=== PATIENT | female | born 1985 | race Caucasian/White ===

== ENCOUNTER 2021-09-20 16:39 | Emergency (ER) | payer OTHER ==
[2021-09-20 17:02] VITALS: BP 134/75; PULSE 99; TEMP 98.6; BMI 43.4
[2021-09-20 18:52] LABS: EOS % 9.1 % (0-4.5); HEMATOCRIT 38.3 % (32.4-45.2); HEMOGLOBIN 12.9 GM/dL (10.7-15.3); LYMPH % 21.2 % (8-40); MCH 29.8 pg (25.7-33.7); MCHC 33.6 g/dl (32.0-36.0); MEAN CELL VOLUME 88.7 fl (80-96); MEAN PLT VOLUME 7.5 fl (7.5-11.1); MONO % 5.8 % (3.8-10.2); NEUT % 62.9 % (42.8-82.8); PLATELET COUNT 279 10^3/uL (134-434); RBC 4.31 M/mm3 (3.60-5.2); RDW 13.4 % (11.6-15.6); WHITE BLOOD COUNT 13.8 K/mm3 (4.0-10.0)
[2021-09-20 19:14] LABS: ALBUMIN 3.4 g/dl (3.4-5.0); BLOOD UREA NITROGEN 14.6 mg/dL (7-18)
[2021-09-20 19:17] LABS: CREATININE 0.7 mg/dL (0.55-1.3)
[2021-09-20 19:19] LABS: BILIRUBIN,TOTAL 0.2 mg/dL (0.2-1); TOT PROT 7.3 g/dl (6.4-8.2)
[2021-09-20 20:02] LABS: EPI CELLS 9 /uL (0-25.1); HYALINE CASTS 1 /uL (0-3.1); PH,URINE 5.5 (5.0-8.0); URINE APPEARANCE CLEAR; URINE BACTERIA >9,000 /uL (0-1359); URINE BILIRUBIN NEGATIVE (NEGATIVE); URINE COLOR YELLOW; URINE GLUCOSE (UA) NEGATIVE (NEGATIVE); URINE KETONE NEGATIVE (NEGATIVE); URINE LEUK ESTERASE TRACE (NEGATIVE); URINE NITRITE POSITIVE (NEGATIVE); URINE PROTEIN 2+ (NEGATIVE); URINE RBC 747 /uL (0-23.9); URINE WBC 56 /uL (0-25.8)
== END 2021-09-20 20:38 | disposition home or self-care (01) ==
LOC: JER 16:39
DX: O26.851 Spotting complicating pregnancy, first trimester (principal); Z3A.01 Less than 8 weeks gestation of pregnancy
CPT/HCPCS: 36415; 80053; 81003; 84702; 85025; 86850; 86900; 86901; 87086; 87186; 99284-25

== ENCOUNTER 2021-10-08 13:53 | Inpatient (IN) | payer OTHER ==
[2021-10-08] MEDS ORDERED: VANCOMYCIN 1 GM in D5W (PRE-DOCKED) 1,000 MG/250 ML IVPB ONE (16:01)
[2021-10-08 17:43] LABS: CALCIUM 8.9 mg/dL (8.5-10.1)
[2021-10-08 17:44] LABS: BLOOD UREA NITROGEN 12.1 mg/dL (7-18)
[2021-10-08 17:47] LABS: CREATININE 0.6 mg/dL (0.55-1.3)
[2021-10-08 17:48] LABS: BILIRUBIN,TOTAL 0.4 mg/dL (0.2-1); TOT PROT 7.6 g/dl (6.4-8.2)
[2021-10-08] MEDS ORDERED: VANCOMYCIN 1 GRAM (PRE-DOCKED) 1,000 MG/250 ML BAG IVPB ONE (18:29)
[2021-10-08 18:57] LABS: BASO % 0.7 % (0-2.0); EOS % 3.8 % (0-4.5); HEMATOCRIT 38.2 % (32.4-45.2); HEMOGLOBIN 12.9 GM/dL (10.7-15.3); MCH 29.1 pg (25.7-33.7); MCHC 33.6 g/dl (32.0-36.0); MEAN CELL VOLUME 86.6 fl (80-96); MONO % 6.6 % (3.8-10.2); NEUT % 69.9 % (42.8-82.8); RBC 4.42 M/mm3 (3.60-5.2); RDW 13.2 % (11.6-15.6); WHITE BLOOD COUNT 19.5 K/mm3 (4.0-10.0)
[2021-10-08] MEDS ORDERED: SODIUM CHLORIDE 0.9% 500 ML INFUS.BAG IV ONE (19:15)
[2021-10-08 19:27] LABS: MEAN PLT VOLUME 8.2 fl (7.5-11.1); PLATELET COUNT 478 10^3/uL (134-434)
[2021-10-08] MEDS ORDERED: PIPERACILLIN/TAZOB 4.5 GM 4.5 GM in DEXTROSE 5%-WATER 100 ML IVPB ONE (20:10)
[2021-10-08] MEDS ORDERED: PIPERACILLIN/TAZOB 4.5 GM 4.5 GM/100 ML BAG IVPB ONE (21:06)
[2021-10-09] MEDS ORDERED: VANCOMYCIN 1 GM PREMIX - 1 GM/200 ML BAG IVPB SCH (02:30)
[2021-10-09] MEDS ORDERED: VANCOMYCIN 1 GRAM (PRE-DOCKED) 1 GM/250 ML BAG IVPB SCH (02:45)
[2021-10-09] MEDS: ACETAMINOPHEN 325 MG TABLET (FP) PO PRN ×2 (03:21→22:01)
[2021-10-09] MEDS ORDERED: PIPERACILLIN/TAZOB 3.375 GM 3.375 GM/50 ML BAG IVPB SCH (10:00)
[2021-10-09] MEDS ORDERED: PIPERACILLIN/TAZOB 3.375 GM 3.375 GM in DEXTROSE 5%-WATER - 50 ML IVPB SCH (10:00)
[2021-10-09] MEDS ORDERED: ENOXAPARIN NA (PORCINE) 40 MG/0.4 ML DISP.SYRIN SQ SCH (10:00)
[2021-10-09] MEDS ORDERED: PIPERACILLIN/TAZOB 3.375 GM 3.375 GM in DEXTROSE 5%-WATER - 3.375 GM/50 ML IVPB IVPB SCH (10:15)
[2021-10-09] MEDS ORDERED: PIPERACILLIN/TAZOBACTAM 3.375 GM VIAL IVPB ONE ×2 (10:19→17:21)
[2021-10-09] MEDS ORDERED: DEXTROSE 5%-WATER - 50 ML IVPB ONE ×2 (10:19→17:22)
[2021-10-09 11:45] LABS: BASO % 0.9 % (0-2.0); EOS % 7.6 % (0-4.5); HEMATOCRIT 31.7 % (32.4-45.2); HEMOGLOBIN 10.5 GM/dL (10.7-15.3); LYMPH % 22.2 % (8-40); MCH 28.8 pg (25.7-33.7); MCHC 33.3 g/dl (32.0-36.0); MEAN CELL VOLUME 86.7 fl (80-96); MEAN PLT VOLUME 7.7 fl (7.5-11.1); MONO % 5.9 % (3.8-10.2); NEUT % 63.4 % (42.8-82.8); PLATELET COUNT 336 10^3/uL (134-434); RBC 3.65 M/mm3 (3.60-5.2); RDW 12.9 % (11.6-15.6); WHITE BLOOD COUNT 11.9 K/mm3 (4.0-10.0)
[2021-10-09 12:23] LABS: CALCIUM 8.3 mg/dL (8.5-10.1)
[2021-10-09 12:24] LABS: BLOOD UREA NITROGEN 12.4 mg/dL (7-18)
[2021-10-09 12:27] LABS: CREATININE 0.6 mg/dL (0.55-1.3)
[2021-10-09 12:28] LABS: BILIRUBIN,TOTAL 0.7 mg/dL (0.2-1); TOT PROT 5.9 g/dl (6.4-8.2)
[2021-10-09 12:30] LABS: ALBUMIN 2.2 g/dl (3.4-5.0)
[2021-10-09] MEDS: PIPERACILLIN/TAZOB 3.375 GM 3.375 GM in DEXTROSE 5%-WATER - 50 ML IVPB SCH (18:22)
[2021-10-09] MEDS ORDERED: ACETAMINOPHEN 1000 MG/100 ML BAG IVPB PRN (22:04)
[2021-10-10] MEDS ORDERED: DEXTROSE 5%-WATER - 50 ML IVPB ONE ×3 (01:35→18:41)
[2021-10-10] MEDS ORDERED: PIPERACILLIN/TAZOBACTAM 3.375 GM VIAL IVPB ONE ×3 (01:35→18:41)
[2021-10-10] MEDS: PIPERACILLIN/TAZOB 3.375 GM 3.375 GM in DEXTROSE 5%-WATER - 50 ML IVPB SCH ×3 (01:51→18:47)
[2021-10-10 10:28] LABS: BASO % 0.9 % (0-2.0); EOS % 7.7 % (0-4.5); HEMATOCRIT 31.3 % (32.4-45.2); HEMOGLOBIN 10.5 GM/dL (10.7-15.3); LYMPH % 24.4 % (8-40); MCH 28.9 pg (25.7-33.7); MCHC 33.4 g/dl (32.0-36.0); MEAN CELL VOLUME 86.5 fl (80-96); MEAN PLT VOLUME 7.5 fl (7.5-11.1); MONO % 7.5 % (3.8-10.2); NEUT % 59.5 % (42.8-82.8); PLATELET COUNT 342 10^3/uL (134-434); RBC 3.62 M/mm3 (3.60-5.2); RDW 12.8 % (11.6-15.6); WHITE BLOOD COUNT 11.7 K/mm3 (4.0-10.0)
[2021-10-10 10:56] LABS: CALCIUM 8.5 mg/dL (8.5-10.1)
[2021-10-10 10:57] LABS: ALBUMIN 2.4 g/dl (3.4-5.0); BLOOD UREA NITROGEN 12.7 mg/dL (7-18)
[2021-10-10 10:59] LABS: CREATININE 0.5 mg/dL (0.55-1.3)
[2021-10-10 11:00] LABS: BILIRUBIN,TOTAL 0.2 mg/dL (0.2-1)
[2021-10-10] MEDS ORDERED: GENTAMICIN SO4 80 MG/2 ML VIAL ONE (13:13)
[2021-10-10] MEDS ORDERED: LIDOCAINE HCL 1%, 10 MG/ML (20ML VIAL) ONE ×2 (13:14→14:16)
[2021-10-10] MEDS ORDERED: DEXAMETHASONE SOD PHOSPHATE 4 MG/1 ML VIAL ONE (13:14)
[2021-10-10] MEDS ORDERED: PROPOFOL 20 ML ONE (13:35)
[2021-10-10] MEDS ORDERED: MIDAZOLAM HCL 2 MG/2 ML SINGLE DOSE VIAL ONE (13:35)
[2021-10-10] MEDS ORDERED: LIDOCAINE HCL/PF 2% SDV 5ML VIAL ONE (14:10)
[2021-10-10] MEDS ORDERED: LIDOCAINE HCL 1%, 10 MG/ML (20ML VIAL) SQ ONE (14:10)
[2021-10-10] MEDS ORDERED: GENTAMICIN 80MG PREMIX BAG IVPB ONE (14:10)
[2021-10-10] MEDS ORDERED: BUPIVACAINE HCL/PF 0.5% (5MG/ML) 10 ML VIAL IJ ONE (14:10)
[2021-10-10] MEDS ORDERED: ACETAMINOPHEN 1000 MG/100 ML BAG IVPB PRN (15:07)
[2021-10-10] MEDS ORDERED: PT OWN MED DRAWER 7, Y5N ONE (21:26)
[2021-10-11] MEDS ORDERED: PIPERACILLIN/TAZOBACTAM 3.375 GM VIAL IVPB ONE ×3 (00:53→17:30)
[2021-10-11] MEDS ORDERED: DEXTROSE 5%-WATER - 50 ML IVPB ONE ×3 (00:53→17:30)
[2021-10-11] MEDS: PIPERACILLIN/TAZOB 3.375 GM 3.375 GM in DEXTROSE 5%-WATER - 50 ML IVPB SCH ×3 (01:02→17:33)
[2021-10-11] MEDS: ENOXAPARIN NA (PORCINE) 40 MG/0.4 ML DISP.SYRIN SQ SCH (09:07)
[2021-10-11 20:30] LABS: BASO % 0.6 % (0-2.0); EOS % 7.1 % (0-4.5); HEMATOCRIT 31.7 % (32.4-45.2); HEMOGLOBIN 10.9 GM/dL (10.7-15.3); LYMPH % 23.4 % (8-40); MCH 29.5 pg (25.7-33.7); MCHC 34.3 g/dl (32.0-36.0); MEAN CELL VOLUME 86.1 fl (80-96); MEAN PLT VOLUME 7.2 fl (7.5-11.1); NEUT % 61.9 % (42.8-82.8); PLATELET COUNT 353 10^3/uL (134-434); RBC 3.69 M/mm3 (3.60-5.2); RDW 12.9 % (11.6-15.6); WHITE BLOOD COUNT 11.5 K/mm3 (4.0-10.0)
[2021-10-11] MEDS: INSULIN SLIDING SCALE (NOVOLOG) 1 VIAL SQ SCH (21:51)
[2021-10-12] MEDS ORDERED: PIPERACILLIN/TAZOBACTAM 3.375 GM VIAL IVPB ONE ×3 (00:54→17:18)
[2021-10-12] MEDS ORDERED: DEXTROSE 5%-WATER - 50 ML IVPB ONE ×3 (00:55→17:18)
[2021-10-12] MEDS: PIPERACILLIN/TAZOB 3.375 GM 3.375 GM in DEXTROSE 5%-WATER - 50 ML IVPB SCH ×3 (01:02→17:34)
[2021-10-12] MEDS: INSULIN SLIDING SCALE (NOVOLOG) 1 VIAL SQ SCH ×4 (06:34→22:15)
[2021-10-12 09:41] LABS: BASO % 0.9 % (0-2.0); EOS % 7.9 % (0-4.5); HEMATOCRIT 31.5 % (32.4-45.2); HEMOGLOBIN 10.5 GM/dL (10.7-15.3); MCH 29.1 pg (25.7-33.7); MCHC 33.4 g/dl (32.0-36.0); MEAN PLT VOLUME 7.4 fl (7.5-11.1); MONO % 6.7 % (3.8-10.2); NEUT % 54.5 % (42.8-82.8); PLATELET COUNT 362 10^3/uL (134-434); RBC 3.61 M/mm3 (3.60-5.2); WHITE BLOOD COUNT 10.6 K/mm3 (4.0-10.0)
[2021-10-12 09:55] LABS: ALBUMIN 2.4 g/dl (3.4-5.0); CALCIUM 8.5 mg/dL (8.5-10.1)
[2021-10-12 09:58] LABS: CREATININE 0.6 mg/dL (0.55-1.3)
[2021-10-12 09:59] LABS: BILIRUBIN,TOTAL 0.2 mg/dL (0.2-1); TOT PROT 6.1 g/dl (6.4-8.2)
[2021-10-12] MEDS: ENOXAPARIN NA (PORCINE) 40 MG/0.4 ML DISP.SYRIN SQ SCH (10:19)
[2021-10-12] MEDS ORDERED: INSULIN (NOVOLOG) ASPART 100 UNITS/ML 10ML VIAL ONE (22:09)
[2021-10-13] MEDS ORDERED: PIPERACILLIN/TAZOBACTAM 3.375 GM VIAL IVPB ONE ×3 (01:31→17:32)
[2021-10-13] MEDS ORDERED: DEXTROSE 5%-WATER - 50 ML IVPB ONE ×3 (01:32→17:32)
[2021-10-13] MEDS: PIPERACILLIN/TAZOB 3.375 GM 3.375 GM in DEXTROSE 5%-WATER - 50 ML IVPB SCH ×3 (02:15→17:35)
[2021-10-13] MEDS: INSULIN SLIDING SCALE (NOVOLOG) 1 VIAL SQ SCH ×4 (07:19→21:53)
[2021-10-13 09:35] LABS: BASO % 0.5 % (0-2.0); EOS % 7.5 % (0-4.5); HEMATOCRIT 31.3 % (32.4-45.2); HEMOGLOBIN 10.5 GM/dL (10.7-15.3); LYMPH % 25.8 % (8-40); MCH 29.1 pg (25.7-33.7); MCHC 33.6 g/dl (32.0-36.0); MEAN CELL VOLUME 86.5 fl (80-96); MEAN PLT VOLUME 7.4 fl (7.5-11.1); MONO % 6.5 % (3.8-10.2); NEUT % 59.7 % (42.8-82.8); PLATELET COUNT 352 10^3/uL (134-434); RBC 3.62 M/mm3 (3.60-5.2); RDW 12.8 % (11.6-15.6); WHITE BLOOD COUNT 11.7 K/mm3 (4.0-10.0)
[2021-10-13 10:02] LABS: ALBUMIN 2.5 g/dl (3.4-5.0)
[2021-10-13 10:04] LABS: TOT PROT 6.2 g/dl (6.4-8.2)
[2021-10-13 10:05] LABS: CALCIUM 8.8 mg/dL (8.5-10.1)
[2021-10-13 10:06] LABS: BLOOD UREA NITROGEN 14.6 mg/dL (7-18); CREATININE 0.6 mg/dL (0.55-1.3)
[2021-10-13 10:07] LABS: BILIRUBIN,TOTAL 0.2 mg/dL (0.2-1)
[2021-10-13] MEDS: ENOXAPARIN NA (PORCINE) 40 MG/0.4 ML DISP.SYRIN SQ SCH (10:40)
[2021-10-13] MEDS ORDERED: INSULIN (NOVOLOG) ASPART 100 UNITS/ML 10ML VIAL ONE (21:06)
[2021-10-14] MEDS ORDERED: PIPERACILLIN/TAZOBACTAM 3.375 GM VIAL IVPB ONE ×3 (01:10→16:59)
[2021-10-14] MEDS ORDERED: DEXTROSE 5%-WATER - 50 ML IVPB ONE ×3 (01:10→16:59)
[2021-10-14] MEDS: PIPERACILLIN/TAZOB 3.375 GM 3.375 GM in DEXTROSE 5%-WATER - 50 ML IVPB SCH ×3 (01:12→17:09)
[2021-10-14] MEDS: INSULIN SLIDING SCALE (NOVOLOG) 1 VIAL SQ SCH ×4 (06:36→22:04)
[2021-10-14] MEDS: ENOXAPARIN NA (PORCINE) 40 MG/0.4 ML DISP.SYRIN SQ SCH (09:52)
[2021-10-15] MEDS ORDERED: DEXTROSE 5%-WATER - 50 ML IVPB ONE ×2 (00:51→09:09)
[2021-10-15] MEDS ORDERED: PIPERACILLIN/TAZOBACTAM 3.375 GM VIAL IVPB ONE ×2 (00:51→09:09)
[2021-10-15] MEDS: PIPERACILLIN/TAZOB 3.375 GM 3.375 GM in DEXTROSE 5%-WATER - 50 ML IVPB SCH ×2 (01:03→09:19)
[2021-10-15] MEDS: INSULIN SLIDING SCALE (NOVOLOG) 1 VIAL SQ SCH ×4 (06:19→21:44)
[2021-10-15] MEDS ORDERED: INSULIN (NOVOLOG) ASPART 100 UNITS/ML 10ML VIAL ONE ×2 (07:38→21:10)
[2021-10-15] MEDS: ENOXAPARIN NA (PORCINE) 40 MG/0.4 ML DISP.SYRIN SQ SCH (09:18)
[2021-10-15] MEDS: VANCOMYCIN PREMIX 1.5 GM 1,500 MG/300 ML BAG IVPB SCH (15:52)
[2021-10-16] MEDS: INSULIN SLIDING SCALE (NOVOLOG) 1 VIAL SQ SCH ×4 (07:14→21:48)
[2021-10-16] MEDS: ENOXAPARIN NA (PORCINE) 40 MG/0.4 ML DISP.SYRIN SQ SCH (10:56)
[2021-10-16] MEDS: VANCOMYCIN PREMIX 1.5 GM 1,500 MG/300 ML BAG IVPB SCH (16:07)
[2021-10-17] MEDS: INSULIN SLIDING SCALE (NOVOLOG) 1 VIAL SQ SCH ×3 (06:54→16:47)
[2021-10-17] MEDS ORDERED: CEFTRIAXONE 2 GM in DEXTROSE 5%-WATER 2 GM/100 ML BAG IVPB SCH (13:15)
[2021-10-17] MEDS ORDERED: DEXTROSE 5%-WATER 100 ML IVPB ONE (13:19)
[2021-10-17 15:18] VITALS: BP 112/75; PULSE 86; TEMP 98.2
[2021-10-17] MEDS: VANCOMYCIN PREMIX 1.5 GM 1,500 MG/300 ML BAG IVPB SCH (16:40)
== END 2021-10-17 21:07 | disposition home health service (06) | DRG 617 ==
LOC: JER 13:53 → JERFT 13:53 → JERBED 19:20 → J6S 10-09 03:17
PROVIDERS: ADMIT Internal Medicine; ATTEND Internal Medicine
PROC: 0JBQ0ZZ Excision of Right Foot Subcutaneous Tissue and Fascia, Open Approach (ICD-10-PCS; 2021-10-10)
PROC: 0Y6T0Z3 Detachment at Right 3rd Toe, Low, Open Approach (ICD-10-PCS; principal; 2021-10-10 14:30)
PROC: 05HB33Z Insertion of Infusion Device into Right Basilic Vein, Percutaneous Approach (ICD-10-PCS; 2021-10-17)
PROC: B51MZZA Fluoroscopy of Right Upper Extremity Veins, Guidance (ICD-10-PCS; 2021-10-17)
DX: E11.69 Type 2 diabetes mellitus with other specified complication (principal); M86.671 Other chronic osteomyelitis, right ankle and foot; Z68.41 Body mass index [BMI] 40.0-44.9, adult; L03.115 Cellulitis of right lower limb; E66.9 Obesity, unspecified; E11.621 Type 2 diabetes mellitus with foot ulcer; F17.210 Nicotine dependence, cigarettes, uncomplicated
CPT/HCPCS: 36415; 36569; 73630-TC-RT-FY; 73660-TC-FY; 73720-TC; 80048; 80053; 82962; 83036; 84702; 84703; 85025; 85651; 86140; 87040; 87070; 87075; 87076; 87077; 87186; 87205; 88305-TC; 88311-TC; 93005; 93010; 94760; 97116-GP; 97162-GP; 99285-25; C9803; J0131; U0003; U0005

== ENCOUNTER 2021-11-24 17:02 | Emergency (ER) | payer OTHER ==
[2021-11-24 17:18] VITALS: TEMP 98.5; BMI 43.4
[2021-11-24] MEDS ORDERED: ONDANSETRON 4 MG/2 ML VIAL IVPUSH ONE (18:09)
[2021-11-24] MEDS ORDERED: SODIUM CHLORIDE 1,000 ML IV STA (18:11)
[2021-11-24] MEDS ORDERED: ONDANSETRON 4 MG/2 ML VIAL ONE (18:12)
[2021-11-24 19:20] LABS: BASO % 0.4 % (0-2.0); HEMATOCRIT 38.9 % (32.4-45.2); HEMOGLOBIN 13.4 GM/dL (10.7-15.3); LYMPH % 18.7 % (8-40); MCHC 34.4 g/dl (32.0-36.0); MEAN CELL VOLUME 84.2 fl (80-96); MEAN PLT VOLUME 7.5 fl (7.5-11.1); MONO % 6.3 % (3.8-10.2); NEUT % 73.6 % (42.8-82.8); PLATELET COUNT 281 10^3/uL (134-434); RBC 4.62 M/mm3 (3.60-5.2); RDW 13.8 % (11.6-15.6); WHITE BLOOD COUNT 11.3 K/mm3 (4.0-10.0)
[2021-11-24 19:32] LABS: ALBUMIN 3.8 g/dl (3.4-5.0); BLOOD UREA NITROGEN 12.5 mg/dL (7-18); CALCIUM 9.4 mg/dL (8.5-10.1)
[2021-11-24 19:35] LABS: CREATININE 0.8 mg/dL (0.55-1.3)
[2021-11-24 19:37] LABS: BILIRUBIN,TOTAL 0.4 mg/dL (0.2-1); TOT PROT 7.6 g/dl (6.4-8.2)
[2021-11-24 21:03] LABS: EPI CELLS 26 /uL (0-25.1); HYALINE CASTS 4 /uL (0-3.1); URINE APPEARANCE CLEAR; URINE BACTERIA 193 /uL (0-1359); URINE BILIRUBIN NEGATIVE (NEGATIVE); URINE COLOR YELLOW; URINE GLUCOSE (UA) NEGATIVE (NEGATIVE); URINE KETONE 1+ (NEGATIVE); URINE LEUK ESTERASE NEGATIVE (NEGATIVE); URINE NITRITE NEGATIVE (NEGATIVE); URINE PROTEIN 1+ (NEGATIVE); URINE RBC 11 /uL (0-23.9); URINE WBC 8 /uL (0-25.8)
[2021-11-24 21:28] VITALS: BP 139/88; PULSE 94
== END 2021-11-24 21:29 | disposition home or self-care (01) ==
LOC: JER 17:02
PROC: 3E033GC Introduction of Other Therapeutic Substance into Peripheral Vein, Percutaneous Approach (ICD-10-PCS; principal; 2021-11-24)
PROC: 3E033GC Introduction of Other Therapeutic Substance into Peripheral Vein, Percutaneous Approach (ICD-10-PCS; 2021-11-24)
PROC: 3E033GC Introduction of Other Therapeutic Substance into Peripheral Vein, Percutaneous Approach (ICD-10-PCS; 2021-11-24)
PROC: 3E0337Z Introduction of Electrolytic and Water Balance Substance into Peripheral Vein, Percutaneous Approach (ICD-10-PCS; 2021-11-24)
DX: R11.2 Nausea with vomiting, unspecified (principal)
CPT/HCPCS: 36415; 80053; 81003; 83690; 84703; 85025; 87086; 99284-25

== ENCOUNTER 2022-10-02 07:20 | Inpatient (IN) | payer OTHER ==
[2022-10-02] MEDS ORDERED: DINOPROSTONE 10 MG VAGINAL SUPPOSITORY VG ONE (08:11)
[2022-10-02 08:12] VITALS: BMI 47.5
[2022-10-02] MEDS ORDERED: PROMETHAZINE HCL 25 MG/1 ML VIAL IVPB ONE (08:14)
[2022-10-02] MEDS ORDERED: BUTORPHANOL TARTRATE 2 MG/ML VIAL IVPB PRN (08:14)
[2022-10-02] MEDS ORDERED: DEXTROSE 5%-LACTATED RINGERS 1,000 ML IV SCH (08:15)
[2022-10-02] MEDS: ELECTROLYTE-148 SOLN 1,000 ML IV SCH ×2 (09:00→17:00)
[2022-10-02] MEDS ORDERED: CITRIC ACID/SODIUM CITRATE 30 ML UNIT-DOSE CUP PO ONE (20:40)
[2022-10-02] MEDS ORDERED: ELECTROLYTE-148 SOLN 500 ML IV ONE (21:00)
[2022-10-02] MEDS ORDERED: ELECTROLYTE-148 SOLN 1,000 ML IV SCH (21:30)
[2022-10-02 22:50] LABS: CORD HCO3 22.7 mmHg (20-29); CORD pH 7.128 (7.14-7.44)
[2022-10-02 22:50] LABS: CORD HCO3 23.5 mmHg (20-29); CORD PCO2 62.6 mmHg (30-78); CORD pH 7.192 (7.14-7.44)
[2022-10-02] MEDS ORDERED: OXYTOCIN 20 UNITS in 0.9% NS 20 UNIT/1,000 ML INFUS.BAG IV ONE (23:15)
[2022-10-02] MEDS ORDERED: SIMETHICONE 80 MG TAB.CHEW (FP) PO PRN (23:21)
[2022-10-02] MEDS ORDERED: METHYLERGONOVINE MALEATE 0.2 MG/1 ML AMP IM PRN (23:21)
[2022-10-02] MEDS ORDERED: ACETAMINOPHEN 325 MG TABLET (FP) PO PRN (23:21)
[2022-10-02] MEDS ORDERED: IBUPROFEN 800 MG/8 ML IJ IVPB PRN (23:22)
[2022-10-03 00:42] VITALS: RESP 18
[2022-10-03] MEDS ORDERED: ceFAZolin 2 GRAM PREMIX BAG IVPB SCH (02:00)
[2022-10-03] MEDS: CEFAZOLIN SODIUM 2 GM in DEXTROSE 5%-WATER - 50 ML IVPB SCH ×3 (02:03→17:43)
[2022-10-03] MEDS: OXYTOCIN 20 UNITS in 0.9% NS 20 UNIT/1,000 ML INFUS.BAG IV SCH ×2 (06:04)
[2022-10-03 09:14] LABS: BASO % 0.3 % (0-2.0); EOS % 1.3 % (0-4.5); HEMATOCRIT 24.5 % (32.4-45.2); HEMOGLOBIN 8.2 GM/dL (10.7-15.3); LYMPH % 15.6 % (8-40); MCH 30.1 pg (25.7-33.7); MCHC 33.5 g/dl (32.0-36.0); MEAN CELL VOLUME 89.9 fl (80-96); MEAN PLT VOLUME 8.5 fl (7.5-11.1); MONO % 6.3 % (3.8-10.2); NEUT % 76.5 % (42.8-82.8); PLATELET COUNT 181 10^3/uL (134-434); RBC 2.72 M/mm3 (3.60-5.2); RDW 14.2 % (11.6-15.6); WHITE BLOOD COUNT 12.4 K/mm3 (4.0-10.0)
[2022-10-03] MEDS: ENOXAPARIN NA (PORCINE) 40 MG/0.4 ML DISP.SYRIN SQ SCH (10:56)
[2022-10-03] MEDS ORDERED: oxyCODONE HCL 5 MG TABLET PO PRN ×2 (11:21)
[2022-10-03] MEDS ORDERED: BISACODYL 10 MG SUPP.RECT RC PRN (23:21)
[2022-10-03] MEDS: IBUPROFEN 600 MG TABLET (FP) PO PRN (23:57)
[2022-10-04] MEDS: ENOXAPARIN NA (PORCINE) 40 MG/0.4 ML DISP.SYRIN SQ SCH (09:50)
[2022-10-04 12:52] VITALS: TEMP 97.9
[2022-10-04] MEDS: OXYTOCIN 20 UNITS in 0.9% NS 20 UNIT/1,000 ML INFUS.BAG IV SCH (20:09)
[2022-10-05 08:19] LABS: BASO % 0.5 % (0-2.0); EOS % 3.9 % (0-4.5); HEMATOCRIT 22.8 % (32.4-45.2); HEMOGLOBIN 7.6 GM/dL (10.7-15.3); LYMPH % 21.3 % (8-40); MCH 30.5 pg (25.7-33.7); MCHC 33.4 g/dl (32.0-36.0); MEAN CELL VOLUME 91.2 fl (80-96); MEAN PLT VOLUME 8.3 fl (7.5-11.1); MONO % 6.8 % (3.8-10.2); NEUT % 67.5 % (42.8-82.8); PLATELET COUNT 200 10^3/uL (134-434); RDW 14.3 % (11.6-15.6); WHITE BLOOD COUNT 10.3 K/mm3 (4.0-10.0)
[2022-10-05 08:56] VITALS: BP 115/74; PULSE 86
[2022-10-05] MEDS: ENOXAPARIN NA (PORCINE) 40 MG/0.4 ML DISP.SYRIN SQ SCH (09:36)
[2022-10-05] MEDS: IBUPROFEN 600 MG TABLET (FP) PO PRN (09:36)
== END 2022-10-05 13:38 | disposition home or self-care (01) | DRG 788 ==
LOC: JLDR 07:20 → J3W 10-03 01:01
PROVIDERS: ADMIT Obstetrics & Gynecology; ATTEND Obstetrics & Gynecology
PROC: 10D00Z1 Extraction of Products of Conception, Low, Open Approach (ICD-10-PCS; principal; 2022-10-02)
PROC: 3E0P7VZ Introduction of Hormone into Female Reproductive, Via Natural or Artificial Opening (ICD-10-PCS; 2022-10-02)
DX: O48.0 Post-term pregnancy (principal); O24.420 Gestational diabetes mellitus in childbirth, diet controlled; O61.0 Failed medical induction of labor; O36.63X0 Maternal care for excessive fetal growth, third trimester, not applicable or unspecified; O69.81X0 Labor and delivery complicated by cord around neck, without compression, not applicable or unspecified; O99.214 Obesity complicating childbirth; E66.01 Morbid (severe) obesity due to excess calories; O98.119 Syphilis complicating pregnancy, unspecified trimester; O77.0 Labor and delivery complicated by meconium in amniotic fluid; Z3A.40 40 weeks gestation of pregnancy; Z37.0 Single live birth
CPT/HCPCS: 36415; 36600; 82803; 82962; 85025; 88307-TC

== ENCOUNTER 2024-09-17 05:37 | Inpatient (IN) | payer OTHER ==
[2024-09-17] MEDS ORDERED: ACETAMINOPHEN INJECTION 100 ML ONE (07:28)
[2024-09-17] MEDS ORDERED: FAMOTIDINE 20 MG/50 ML IVPB 20 MG/50 ML MG IVPB ONE (07:28)
[2024-09-17] MEDS ORDERED: ONDANSETRON 4 MG/2 ML VIAL ONE (07:28)
[2024-09-17] MEDS: ONDANSETRON 4 MG/2 ML VIAL IVPUSH ONE (07:45)
[2024-09-17] MEDS: LACTATED RINGERS SOLUTION 1000 ML INFUS.BAG IV ONE (07:50)
[2024-09-17] MEDS: FAMOTIDINE 20 MG/50 ML IVPB 20 MG/50 ML MG IVPB ONE (07:55)
[2024-09-17] MEDS: ACETAMINOPHEN 1000 MG/100 ML BAG IVPB ONE (07:55)
[2024-09-17 08:04] LABS: VENOUS O2 SATURATION 83.6 % (70-80); VENOUS PCO2 41.3 mmHg (38-52); VENOUS PH 7.368 (7.310-7.410)
[2024-09-17 08:11] LABS: BASO % 0.3 % (0-2.0); EOS % 1.7 % (0-4.5); HEMATOCRIT 35.5 % (32.4-45.2); HEMOGLOBIN 11.9 GM/dL (10.7-15.3); MCH 29.7 pg (25.7-33.7); MCHC 33.6 g/dl (32.0-36.0); MEAN CELL VOLUME 88.4 fl (80-96); MEAN PLT VOLUME 7.8 fl (7.5-11.1); MONO % 3.6 % (3.8-10.2); NEUT % 85.4 % (42.8-82.8); PLATELET COUNT 259 10^3/uL (134-434); RBC 4.02 M/mm3 (3.60-5.2); RDW 13.2 % (11.6-15.6)
[2024-09-17 08:14] LABS: INR 0.96 (0.83-1.09); PROTHROMBIN TIME (PATIENT) 11.1 SEC (9.7-13.0)
[2024-09-17 08:16] LABS: ACTIVATED PTT 24.8 SECONDS (25.2-36.5)
[2024-09-17 08:28] LABS: ALBUMIN 3.3 g/dl (3.4-5.0); BLOOD UREA NITROGEN 25.9 mg/dL (7-18); MAGNESIUM 1.5 mg/dL (1.8-2.4)
[2024-09-17 08:31] LABS: CREATININE 1.3 mg/dL (0.55-1.3)
[2024-09-17 08:33] LABS: BILIRUBIN,TOTAL 0.3 mg/dL (0.2-1); TOT PROT 6.8 g/dl (6.4-8.2)
[2024-09-17] MEDS ORDERED: MAGNESIUM SULFATE IN WATER 2 GM/50 ML IVPB IVPB ONE (08:59)
[2024-09-17] MEDS: MAGNESIUM SULFATE IN WATER 2 GM/50 ML IVPB IVPB ONE (09:05)
[2024-09-17 10:40] LABS: EPI CELLS 8 /uL (0-25.1); HYALINE CASTS 0 /uL (0-3.1); URINE APPEARANCE CLEAR; URINE BACTERIA 4103 /uL (0-1359); URINE BILIRUBIN NEGATIVE (NEGATIVE); URINE COLOR YELLOW; URINE GLUCOSE (UA) 2+ (NEGATIVE); URINE KETONE TRACE (NEGATIVE); URINE LEUK ESTERASE NEGATIVE (NEGATIVE); URINE NITRITE NEGATIVE (NEGATIVE); URINE PROTEIN 1+ (NEGATIVE); URINE RBC 281 /uL (0-23.9); URINE UROBILINOGEN 0.2 mg/dL (0.2-1.0); URINE WBC 14 /uL (0-25.8)
[2024-09-17] MEDS ORDERED: KETOROLAC TROMETHAMINE 15 MG/ML VIAL ONE (11:16)
[2024-09-17] MEDS ORDERED: CEFTRIAXONE 1 G/50 ML PREMIX 50 ML IVPB ONE (11:16)
[2024-09-17] MEDS: KETOROLAC TROMETHAMINE 15 MG/ML VIAL IVPUSH ONE (11:20)
[2024-09-17] MEDS: SODIUM CHLORIDE 0.9% 500 ML INFUS.BAG IV ONE (11:25)
[2024-09-17 12:33] VITALS: BMI 49.8
[2024-09-17] MEDS ORDERED: ONDANSETRON 4 MG/2 ML VIAL IVPUSH PRN (13:55)
[2024-09-17 15:45] LABS: N-TERMINAL BNP 83.5 pg/ml (5-125)
[2024-09-17] MEDS: INSULIN ASPART SLIDING SCALE (NOVOLOG) 1 VIAL SQ SCH (16:48)
[2024-09-17] MEDS: DEXTROSE 5%-0.45% SALINE 1,000 ML IV SCH (16:52)
[2024-09-17] MEDS: ACETAMINOPHEN 1000 MG/100 ML BAG IVPB PRN (17:15)
[2024-09-17] MEDS: ONDANSETRON 4 MG/2 ML VIAL IVPUSH PRN (17:15)
[2024-09-18 09:29] LABS: BASO % 0.2 % (0-2.0); EOS % 0.2 % (0-4.5); HEMATOCRIT 34.4 % (32.4-45.2); HEMOGLOBIN 11.6 GM/dL (10.7-15.3); LYMPH % 5.7 % (8-40); MCH 29.8 pg (25.7-33.7); MCHC 33.7 g/dl (32.0-36.0); MEAN CELL VOLUME 88.3 fl (80-96); MEAN PLT VOLUME 7.8 fl (7.5-11.1); MONO % 3.2 % (3.8-10.2); NEUT % 90.7 % (42.8-82.8); PLATELET COUNT 228 10^3/uL (134-434); RBC 3.89 M/mm3 (3.60-5.2); RDW 13.4 % (11.6-15.6); WHITE BLOOD COUNT 15.4 K/mm3 (4.0-10.0)
[2024-09-18 09:44] LABS: POTASSIUM 3.6 mmol/L (3.5-5.1)
[2024-09-18 09:46] LABS: CALCIUM 8.4 mg/dL (8.5-10.1)
[2024-09-18 09:47] LABS: ALBUMIN 2.7 g/dl (3.4-5.0); BLOOD UREA NITROGEN 18.6 mg/dL (7-18)
[2024-09-18 09:50] LABS: CREATININE 1.5 mg/dL (0.55-1.3)
[2024-09-18 09:52] LABS: BILIRUBIN,TOTAL 0.3 mg/dL (0.2-1)
[2024-09-18] MEDS: CEFTRIAXONE 1 G/50 ML PREMIX 50 ML IVPB SCH (10:43)
[2024-09-18] MEDS ORDERED: MIDAZOLAM HCL 2 MG/2 ML SINGLE DOSE VIAL ONE (11:30)
[2024-09-18] MEDS ORDERED: PROPOFOL 40 ML ONE (11:30)
[2024-09-18] MEDS ORDERED: SODIUM CHLORIDE 1,000 ML IV SCH (12:15)
[2024-09-18] MEDS ORDERED: ACETAMINOPHEN 1000 MG/100 ML BAG IVPB PRN (13:03)
[2024-09-18] MEDS ORDERED: ONDANSETRON 4 MG/2 ML VIAL IVPUSH PRN (13:03)
[2024-09-18] MEDS ORDERED: DEXTROSE 5%-0.45% SALINE 1,000 ML IV SCH (13:03)
[2024-09-18] MEDS: SODIUM CHLORIDE 1,000 ML IV SCH (13:48)
[2024-09-18 15:35] LABS: MAGNESIUM 1.8 mg/dL (1.8-2.4)
[2024-09-18] MEDS: INSULIN ASPART SLIDING SCALE (NOVOLOG) 1 VIAL SQ SCH (16:14)
[2024-09-19] MEDS: CEFTRIAXONE 1 G/50 ML PREMIX 50 ML IVPB SCH (09:16)
[2024-09-19 09:46] VITALS: BP 136/69; PULSE 90; RESP 17; TEMP 98.7
[2024-09-19 10:25] LABS: BASO % 0.5 % (0-2.0); EOS % 5.1 % (0-4.5); HEMATOCRIT 33.3 % (32.4-45.2); LYMPH % 16.2 % (8-40); MCH 29.7 pg (25.7-33.7); MEAN PLT VOLUME 7.6 fl (7.5-11.1); MONO % 5.5 % (3.8-10.2); NEUT % 72.7 % (42.8-82.8); PLATELET COUNT 219 10^3/uL (134-434); RDW 13.5 % (11.6-15.6)
[2024-09-19 10:44] LABS: POTASSIUM 3.8 mmol/L (3.5-5.1)
[2024-09-19 10:46] LABS: ALBUMIN 2.6 g/dl (3.4-5.0); BLOOD UREA NITROGEN 13.5 mg/dL (7-18); CALCIUM 8.2 mg/dL (8.5-10.1)
[2024-09-19 10:50] LABS: CREATININE 0.9 mg/dL (0.55-1.3)
[2024-09-19 10:51] LABS: BILIRUBIN,TOTAL 0.2 mg/dL (0.2-1); TOT PROT 5.7 g/dl (6.4-8.2)
== END 2024-09-19 16:15 | disposition home or self-care (01) | DRG 661 ==
LOC: JER 05:37 → JERBED 11:14 → J5S 12:12 → OBSVTOIN 13:53
PROVIDERS: ADMIT Internal Medicine; ATTEND Internal Medicine
PROC: BT1DZZZ Fluoroscopy of Right Kidney, Ureter and Bladder (ICD-10-PCS; 2024-09-18)
PROC: 0T768DZ Dilation of Right Ureter with Intraluminal Device, Via Natural or Artificial Opening Endoscopic (ICD-10-PCS; principal; 2024-09-18 12:30)
DX: N13.6 Pyonephrosis (principal); E83.42 Hypomagnesemia; I10 Essential (primary) hypertension; E11.65 Type 2 diabetes mellitus with hyperglycemia; E66.01 Morbid (severe) obesity due to excess calories
CPT/HCPCS: 36415; 74177-TC; 76000-TC-FY; 80053; 80061; 81003; 82803; 82962; 83036; 83690; 83735; 83880; 84443; 84703; 85025; 85610; 85730; 86850; 86900; 86901; 87086; 87186; 93005; 93010; 93306-TC; 94760; 99285-25; C2617; G0378; J0131; Q9967

== ENCOUNTER 2025-04-06 18:17 | Emergency (ER) | payer OTHER ==
[2025-04-06 18:21] VITALS: PULSE 86; RESP 18; BMI 47.5
[2025-04-06] MEDS: ACETAMINOPHEN 1000 MG/100 ML BAG IVPB ONE (20:18)
[2025-04-06 20:22] LABS: ABSOLUTE IMMATURE GRANULOCYTES 0.06 x10^3/uL (0.0-0.031); BASOPHILS # 0.08 x10^3/uL (0.01-0.08); EOSINOPHIL % 5.8 % (0.7-5.8); EOSINOPHILS # 0.68 x10^3/uL (0.04-0.36); MCHC 32.9 g/dl (32.2-35.5); MEAN CELL VOLUME 89.1 fl (79.4-94.8); MEAN PLT VOLUME 9.2 fl (9.4-12.3); MONOCYTE # 0.65 x10^3/uL (0.24-0.86); MONOCYTE % 5.5 % (4.7-12.5); RDW 13.1 % (12.1-16.8)
[2025-04-06 20:30] LABS: INR 1.04 (0.83-1.09); PROTHROMBIN TIME (PATIENT) 11.4 SEC (9.7-13.0)
[2025-04-06 20:33] LABS: ACTIVATED PTT 29.1 SECONDS (25.2-36.5)
[2025-04-06 21:06] LABS: CO2 27.0 mmol/L (21-32); GLUCOSE,RANDOM 192.0 mg/dL (74-106)
[2025-04-06 21:09] LABS: CREATININE 0.9 mg/dL (0.55-1.3); SGPT/ALT 22.0 U/L (13-61)
[2025-04-06 21:10] LABS: SGOT/AST 19.0 U/L (15-37); TOT PROT 7.1 g/dl (6.4-8.2)
[2025-04-06 21:11] LABS: ALK PHOS 87.0 U/L (45-117)
[2025-04-06 21:29] VITALS: BP 127/75; TEMP 98.9
[2025-04-06 21:55] LABS: HCV DIAGNOSTIC IN-HOUSE W/RFLX NON-REACTIVE (NONREACTIVE)
[2025-04-06 21:56] LABS: HIV INTERPRETATION NEGATIVE (NEGATIVE)
== END 2025-04-06 22:46 | disposition home or self-care (01) ==
LOC: JER 18:17
PROC: 3E033NZ Introduction of Analgesics, Hypnotics, Sedatives into Peripheral Vein, Percutaneous Approach (ICD-10-PCS; principal; 2025-04-06)
DX: O03.9 Complete or unspecified spontaneous abortion without complication (principal)
CPT/HCPCS: 36415; 76817-TC; 80053; 83690; 83735; 84702; 85025; 85610; 85730; 86803; 86850; 86900; 86901; 87389; 99285-25